=== PATIENT | female | born 1995 | race African-American/Black ===

== ENCOUNTER 2021-08-09 12:28 | Emergency (ER) | payer BC ==
--- OUTSIDE RECORDS SUMMARY | 2021-08-09 12:31 | XMS REPORT | Continuity of Care Document ---
:1995 Author Organization [facility] t Address [address] [place] [address] Care Team Providers Name Role Phone SAVAGE Attending Clinician Unavailable Lab, Fam Pob I Attending Clinician Unavailable [facility]IEF Attending Clinician Tiana LANE, J Attending Clinician Teodora MONTIEL Attending Clinician Unavailable Doctor Unassigned, Name Attending Clinician Unavailable Gavino Rutherford MA Attending Clinician Unavailable Payers Payer Name Policy Type Policy Number Effective Date Expiration Date S ource [employer] FED [employer] [id number] 2009 00:00:00 Problems This patient has no known problems. Allergies, Adverse Reactions, Alerts Allergy Allergy Status Severity Reaction(s) Onset Inactive Treating Comm ents Source Name Type Date Date Clinician NO KNOWN Drug Active Univers ALLERGIE Class [facility] Social History Social Habit Start Date Stop Date Quantity Comments Source Exposure to Not sure [facility] SARS-CoV-2 (event) [facility] Sex Assigned At [birth year] [facility] 00:00:00 00:00:00 [facility] Smoking Status Start Date Stop Date Source Unknown if ever smoked [facility] Medications This patient has no known medications. Procedures This patient has no known procedures. Encounters Start End Encounter Admission Attending Care Care Encounter Source Date/Time Date/Time Type Type Clinicians Facility Department ID 2020-11-04 2020-11-04 Outpatient [facility] [id number] Univers 15:00:00 15:00:00 [id number] [facility] 2020-11-04 2020-11-04 Outpatient Esperanza WAN [facility] [id number] Univers 15:00:00 15:00:00 DEMI [facility] 2020-11-04 2020-11-04 Laboratory Lab, [facility] Fam Pob I [facility] 1.2. [id number] Univers 14:28:43 14:48:43 Only Demi [facility] [id number] [facility] [place] [id number] Benito as Professio [phone] [address] Office Building One 2020-10-21 2020-10-21 Laboratory Lab, [facility] I [facility] 1.2. [id number] Univers 16:16:56 16:36:56 Only [facility] [id number] [facility] [place] [id number] Benito as Professio [phone] [address] One 2020-10-21 2020-10-21 Outpatient R TIANA [facility] [id number] [facility] 16:20:00 16:20:00 CHARISSE lopez o f [facility] 2020-10-21 2020-10-21 Letter Doctor CROWDER [id number] Univers 00:00:00 00:00:00 (Out) KEI Rivera [id number] [facility]y of [facility] [id number] Benito as [phone] [address] 2020-10-21 2020-10-21 Letter Krish [facility] [id number] Univers 00:00:00 00:00:00 (Out) [facility] [id number] [facility] [place] [id number] [facility] as Professio [phone] [address] Office Building One Results This patient has no known results.
[2021-08-09] MEDS ORDERED: CYCLOBENZAPRINE 10 MG TAB ONE (12:47)
--- NOTE | 2021-08-09 13:48 | RAD REPORT ---
EXAM DESCRIPTION: RAD - Knee Right 3 View - 08/09/2021 1:05 pm CLINICAL HISTORY: PAIN COMPARISON: No comparisons FINDINGS: No fracture or dislocation seen. No significant joint effusion.
--- NOTE | 2021-08-09 14:04 | ER ---
Nurse's Notes [facility] Name: Claire Cloud Age: 26 yrs Sex: Female : 1995 Arrival Date: 08/09/2021 Time: 12:30 Bed 18 Private MD: Diagnosis: Sprain of unspecified site of right knee Presentation: 08/09 12:42 Chief complaint: Patient states: R knee pain after hearing a pop lasts night while ss dancing. Coronavirus screen: Client denies travel out of the [place] in the last 14 days. Ebola Screen: Patient denies exposure to infectious person. Patient denies travel to an Ebola-affected area in the 21 days before illness onset. Initial Sepsis Screen: Does the patient meet any 2 criteria? No. Patient's initial sepsis screen is negative. Does the patient have a suspected source of infection? No. Patient's initial sepsis screen is negative. Risk Assessment: Do you want to hurt yourself or someone else? Patient reports no desire to harm self or others. Onset of symptoms was August 08, 2021. 12:42 Method Of Arrival: Wheelchair ss 12:42 Acuity: DESIREE 4 ss Triage Assessment: 14:00 General: Appears in no apparent distress. Behavior is calm, cooperative. 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 - Social history:: Smoking status: Patient reports the use of cigarette tobacco products, denies chronic smoking, but will smoke occasionally. Screenin:16 Abuse screen: Denies threats or abuse. Denies injuries from another. Nutritional jg9 screening: No deficits noted. Tuberculosis screening: No symptoms or risk factors identified. Fall Risk None identified. Fall in past 12 months (25 points). Ambulatory Aid- Crutches/Cane/Walker (15 pts). Assessment: 14:14 Reassessment: No changes from previously documented assessment. Patient and/or family jg9 updated on plan of care and expected duration. Pain level reassessed. Patient reports muscle relaxer has not help. Pain: Complains of pain in right leg-r knee Pain does not radiate. Pain currently is 8 out of 10 on a pain scale. Musculoskeletal: Reports pain in right leg-r knee. Vital Signs: 12:42 BP 143 / 72; Pulse 81; Resp 16; Temp 98.7(TE); Pulse Ox 100% on R/A; Weight 63.5 kg; ss Height 5 ft. 4 in. (162.56 cm); 12:44 Pain 8/10; ss 14:00 BP 138 / 76; Pulse 80; Resp 17; Pulse Ox 99% on R/A; jg9 12:42 Body Mass Index 24.03 (63.50 kg, 162.56 cm) ED Course: 12:30 Patient arrived in ED. mr 12:43 Triage completed. ss 12:43 Arm band placed on right wrist. ss 12:46 [facility]ones [facility]C [facility] kb 12:46 Malik Jang MD is Attending Physician. kb 13:05 Knee Right 3 View XRAY In Process Unspecified. EDMS 14:00 Patient has correct armband on for positive identification. Bed in low position. Call jg9 light in reach. 14:06 Abbie Wade is Primary Nurse. jg9 14:17 No provider procedures requiring assistance completed. Crutch training done. Tyree wrap jg9 to right knee crutches provider after showing patient how to use them and having her demonstrate back to me-patient has previous experience with using crutches-learning was successful. 14:19 Patient did not have IV access during this emergency room visit. jg9 Administered Medications: 12:47 Drug: Flexeril (cyclobenzaprine) 10 mg Route: PO; Outcome: 14:04 Discharge ordered by . kb 14:19 Discharged to home via wheelchair, with crutches, with friend. jg9 14:19 Condition: stable 14:19 Discharge instructions given to patient, friend, Instructed on discharge instructions, follow up and referral plans. crutch walking, Demonstrated understanding of instructions, follow-up care, medications, crutch walking, Prescriptions given X 2. 14:23 Patient left the ED. jg9 Signatures: Dispatcher [employer] EDMI Berna Quinones FNP-C FNP-Amanda Zamora Shelby, RN RN ss Abbie Wade jg9
[2021-08-09 14:27] VITALS: TEMP 98.7
[2021-08-09 14:29] VITALS: BP 138/76; O2SAT 99
--- NOTE | 2021-08-10 14:23 | EDPHYS ---
Physician Documentation [facility] Name: Claire Cloud Age: 26 yrs Sex: Female : 1995 Arrival Date: 08/09/2021 Time: 12:30 Bed 18 Private MD: ED Physician Malik Jang HPI: 08/09 15:53 This 26 yrs old Black Female presents to ER via Wheelchair with complaints of Leg Pain. kb 15:53 The patient presents with pain. The complaints affect the right knee. Context: The kb problem was sustained at a bar or nightclub, resulted from an unknown cause, the patient can partially bear weight, the patient is able to ambulate. Onset: The symptoms/episode began/occurred yesterday. Modifying factors: The symptoms are alleviated by nothing. the symptoms are aggravated by movement, weight bearing. Associated signs and symptoms: The patient has no apparent associated signs or symptoms. Treatment prior to arrival includes: no previous treatment. Severity of symptoms: At their worst the symptoms were moderate, in the emergency department the symptoms are unchanged. The patient has not experienced similar symptoms in the past. The patient has not recently seen a physician. Pt reports she felt a pop in right knee when dancing last night. Pain worse today and cannot bear full weight. . 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 - Social history:: Smoking status: Patient reports the use of cigarette tobacco products, denies chronic smoking, but will smoke occasionally. ROS: 15:53 Constitutional: Negative for fever, chills, and weight loss. kb 15:53 MS/extremity: Positive for pain, of the right knee. 15:53 All other systems are negative. Exam: 15:53 Constitutional: This is a well developed, well nourished patient who is awake, alert, kb and in no acute distress. Head/Face: Normocephalic, atraumatic. Respiratory: Respirations even and unlabored. No increased work of breathing. Talking in full sentences Skin: Warm, dry with normal turgor. Normal color. Neuro: Awake and alert, GCS 15, oriented to person, place, time, and situation. Moves all extremities. Normal gait. Psych: Awake, alert, with orientation to person, place and time. Behavior, mood, and affect are within normal limits. 15:53 Musculoskeletal/extremity: Extremities: grossly normal except: noted in the right knee: pain, ROM: intact in all extremities, Circulation is intact in all extremities. Sensation intact. Weight bearing: can bear weight with assistance only. Vital Signs: 12:42 BP 143 / 72; Pulse 81; Resp 16; Temp 98.7(TE); Pulse Ox 100% on R/A; Weight 63.5 kg; ss Height 5 ft. 4 in. (162.56 cm); 12:44 Pain 8/10; ss 14:00 BP 138 / 76; Pulse 80; Resp 17; Pulse Ox 99% on R/A; jg9 12:42 Body Mass Index 24.03 (63.50 kg, 162.56 cm) ss MDM: 12:46 Patient medically screened. kb 15:52 Data reviewed: vital signs, nurses notes. Data interpreted: Pulse oximetry: on room air kb is 99 %. Interpretation: normal. Counseling: I had a detailed discussion with the patient and/or guardian regarding: the historical points, exam findings, and any diagnostic results supporting the discharge/admit diagnosis, radiology results, the need for outpatient follow up, a orthopedic surgeon, to return to the emergency department if symptoms worsen or persist or if there are any questions or concerns that arise at home. 08/09 12:46 Order name: Knee Right 3 View XRAY; Complete Time: 13:59 kb 08/09 13:59 Order name: Tyree Wrap; Complete Time: 14:13 kb 08/09 13:59 Order name: Crutches; Complete Time: 14:13 kb Administered Medications: 12:47 Drug: Flexeril (cyclobenzaprine) 10 mg Route: PO; ss Disposition: 16:47 Co-signature as Attending Physician, Malik Jang MD I agree with the assessment and rn plan of care. Attestation: The patient's history, exam findings, diagnostics, and a summary of any interventions or procedures was reviewed in detail with Berna RIVAS. Disposition Summary: 08/09/21 14:04 Discharge Ordered Location: Home kb Condition: Stable kb Diagnosis - Sprain of unspecified site of right knee kb Followup: kb - With: Emergency Department - When: As needed - Reason: Worsening of condition Followup: kb - With: Private Physician - When: 2 - 3 days - Reason: Recheck today's complaints, Continuance of care, Re-evaluation by your physician Discharge Instructions: - Discharge Summary Sheet kb - Knee Sprain, Adult, [id number] kb Forms: - Medication Reconciliation Form kb - Thank You Letter kb - Antibiotic Education kb - Prescription Opioid Use kb Prescriptions: - Cyclobenzaprine 10 mg Oral Tablet - take 1 tablet by ORAL route every 8 hours As needed; 21 tablet; Refills: 0, kb Product Selection Permitted - Diclofenac Sodium 75 mg Oral tablet,delayed release (DR/EC) - take 1 tablet by ORAL route 2 times per day As needed; 30 tablet; Refills: 0, kb Product Selection Permitted Signatures: Dispatcher [employer] EDBerna Rubio, EVELYN LANE-Malik Miller MD MD rn Smirch, Shelby, RN RN ss
== END 2021-08-09 14:23 | disposition home or self-care (01) ==
LOC: ER 12:28
DX: S83.91XA Sprain of unspecified site of right knee, initial encounter (principal); Y93.41 Activity, dancing; Y92.89 Other specified places as the place of occurrence of the external cause; F17.210 Nicotine dependence, cigarettes, uncomplicated
CPT/HCPCS: 99284